=== PATIENT | female | born 1930 | race Hispanic/Latino ===

== ENCOUNTER 2017-11-06 08:53 | Day surgery (SDC) | payer MEDICARE ==
[2017-11-06] MEDS ORDERED: WATER FOR IRRIG STERILE IR ONE (10:45)
[2017-11-06] MEDS ORDERED: NACL 0.9% 1000 ML 1,000 ML IV SCH (11:00)
[2017-11-06] MEDS ORDERED: DIPRIVAN 10 MG/ML IV ONE (11:45)
--- NOTE | 2017-11-06 12:13 | Short Stay Summary ---
Short Stay Documentation Date of service: 11/06/17 Narrative H&P: The patient presents for EGD with esophageal dilation for dysphagia. 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 - History Past Medical History: COPD, stroke, other (pacemaker, recent carotid endarterectomy) Past Surgical History: Other (CEA, colon surgery, breast surgery) Social history: no significant social history, lives with family, no smoking, no alcohol abuse - Allergies and Medications Current Medications: Allergies bacitracin [From Neosporin ([id number])] Allergy (Verified 05/22/17 15:42) Rash codeine Allergy (Verified 05/22/17 15:42) N&V ibuprofen Allergy (Verified 05/22/17 15:42) Unknown neomycin [From Neosporin ([id number])] Allergy (Verified 05/22/17 15:42) Rash Penicillins Allergy (Verified 05/22/17 15:42) Anaphylaxis polymyxin B [From Neosporin ([id number])] Allergy (Verified 05/22/17 15:42) Rash IVP dye Allergy (Uncoded 05/22/17 15:42) Rash Home Medications Medication Instructions Recorded Confirmed Last Taken Type RX: Benzonatate [Tessalon Perles] 100 mg PO TID 05/22/17 11/05/17 Unknown History RX: Biotin 5,000 mcg PO DAILY 05/22/17 11/05/17 05/27/17 History RX: Calcium Carbonate/Vitamin D3 1 each PO DAILY 05/22/17 11/05/17 05/27/17 History [Oyster Shell Calcium-Vit D Tab] RX: Carvedilol [Coreg] 3.125 mg PO BID 05/22/17 11/06/17 11/05/17 17:00 History RX: Cetirizine HCl [Zyrtec] 10 mg PO DAILY 05/22/17 11/05/17 Unknown History RX: Guaifen/Dextromethorphan/PE 15 ml PO PRN PRN 05/22/17 11/05/17 05/25/17 History [Robafen Cf Liquid] RX: Melatonin 10 mg PO HS 05/22/17 11/06/17 11/05/17 21:00 History RX: Memantine HCl/Donepezil HCl 1 each PO DAILY 05/22/17 05/28/17 11/05/17 09: 00 History [Namzaric 28 mg-10 mg Capsule] RX: Multivitamin [Multiple 1 each PO DAILY 05/22/17 11/05/17 05/27/17 History Vitamins] RX: Niacin [Niacin ER] 500 mg PO DAILY 05/22/17 11/06/17 11/05/17 09:00 History RX: Nitroglycerin [Nitrostat] 0.4 mg SL Q5M PRN 05/22/17 11/05/17 Unknown History RX: Pantoprazole [Protonix TAB] 40 mg PO QDAY 05/22/17 11/05/17 05/28/17 History RX: Polyethylene Glycol 3350 527 gm PO DAILY 05/22/17 05/22/17 Unknown History RX: Pravastatin Sodium 20 mg PO QHS 05/22/17 11/06/17 11/05/17 21:00 History [Pravastatin] RX: Sertraline [Zoloft] 50 mg PO QDAY 05/22/17 11/06/17 11/05/17 09:00 History RX: amLODIPine [Norvasc] 2.5 mg PO DAILY 05/22/17 11/06/17 11/05/17 17:00 History RX: guaiFENesin [Mucinex] 600 mg PO Q12H 05/22/17 11/05/17 Unknown History RX: traMADol [Ultram 50 MG tab] 50 mg PO BID 05/22/17 11/06/17 11/05/17 17:00 History RX: Arformoterol Nebu [Brovana 15 mcg IH Q12HRT ml 06/05/17 11/05/17 Unknown Rx Nebu] RX: Aspirin [Aspirin BABY CHEW TAB] 81 mg PO QDAY tab.chew 06/05/17 11/06/17 09:00 Rx RX: Budesonide [Pulmicort Respules] 0.5 mg IH Q12HRT nebu 06/05/17 11/05/17 Unknown Rx RX: Nystas/Diphen/Xyl Visc/Mylanta 15 ml PO TID oral.liqd 06/05/17 11/05/17 Unknown Rx [Magic Mouthwash] Active Medications Sodium Chloride (Nacl 0.9% 1000 Ml) 1,000 mls @ 50 mls/hr IV DIRECT LIS Last Admin: 11/06/17 10:35 Dose: 50 mls/hr - Physical exam General appearance: no acute distress, well-nourished Integumentary: no rash, no growths, no abnormal pigmentation HEENT: Atraumatic, PERRLA, EOMI, Mucous membr. moist/pink Lungs: Clear to auscultation, Normal air movement Breasts: deferred Heart: Regular rate, Normal S1, Normal S2, No murmurs Gastrointestinal: normoactive bowel sounds, no tenderness, no distended, no masses, no guarding, no organomegaly Female Genitourinary: deferred Rectal Exam: deferred Extremities: no ischemia, pulses intact, pulses symmetrical, No edema, normal temperature, normal color, Full ROM Neurological: Normal gait, Normal speech, Strength at 5/5 X4 ext, Normal tone, Sensation intact, Cranial nerves 3-12 NL - Brief post op/procedure progress note Date of procedure: 11/06/17 Procedure: see dictated report Estimated blood loss: none Pathology: none Condition: stable - Disposition Condition at discharge: Good Disposition: DC-01 TO HOME OR SELFCARE - Discharge Diagnoses (1) Dysphagia Status: Chronic Short Stay Discharge Plan Activity: advance as tolerated, other Weight Bearing Status: Weight Bear as Tolerated Diet: advance as tolerated Follow up with: CAIT RIBEIRO MD [Primary Care Provider] - 7 Days
--- NOTE | 2017-11-06 12:17 | Operative Report ---
Operative Report Operative Report: Date of procedure: 11/06/2017 Procedure: Esophagogastroduodenoscopy with Tyler dilation of the esophagus-38 Kazakh, 42 Kazakh and 46 Kazakh sequentially. Preprocedure diagnosis: Dysphagia to solids. History of radiation to the neck. 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 Endoscopist: Dr. Kiran Anesthesia: Monitored anesthesia care per anesthesia department Medications: Propofol per anesthesia Estimated blood loss: 0 After careful discussion of the nature and purpose of the procedure as well as details the technique risks benefits and alternatives consent was obtained. The patient was placed in the left lateral decubitus position and medicated per anesthesia. The tip of the [employer] EQ 570 video scope was passed per orum under direct vision into the esophagus and advanced into the stomach and descending duodenum. The descending duodenum the duodenal bulb and pylorus were symmetrical and normal. The scope was withdrawn into the stomach and the stomach then gently insufflated with air. The antrum was normal. The stomach was further insufflated and the scope was then retroflexed and partially withdrawn. The cardia, fundus, and body of the stomach were within normal limits and easily distensible.The scope was then withdrawn in the forward position. The esophagogastric junction was at 36 cm. The distal and mid esophageal body were normal. There was the impression of mild stricturing at the cricopharyngeal inlet of the esophagus. Dilation was performed in light of symptoms and prior history of radiation therapy. A Tyler 38 Kazakh dilator was passed with mild resistance. This was followed by passage of 42 and 46 Kazakh Tyler dilators each with mild resistance. The procedure was was well tolerated and the patient was observed in recovery. 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 Status post dilation to 46 Kazakh Tyler. Plan: Repeat dilation as necessary. Electronically signed: Valente Kiran MD
--- NOTE | 2017-11-06 12:42 | Anesthesia Consultation ---
Anesthesia Consult and Med Hx Date of service: 11/06/17 - Airway Anesthetic Teeth Evaluation: Good ROM Head & Neck: Adequate Mental/Hyoid Distance: Adequate Mallampati Class: Class I Intubation Access Assessment: Good - Pulmonary Exam CTA: Yes - Cardiac Exam Cardiac Exam: RRR - Pre-Operative Health Status ASA Pre-Surgery Classification: ASA3 Proposed Anesthetic Plan: IV Sedation - Pulmonary Hx Smoking: Yes COPD: Yes - Cardiovascular System Hx Hypertension: Yes Hx Coronary Artery Disease: Yes Hx Heart Attack/AMI: Yes ("mild" 2 yrs ago) Hx Pacemaker: Yes - Central Nervous System CVA: Yes (04/2017) 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
--- NOTE | 2017-11-06 12:42 | Anesthesia Day of Surgery ---
Anesthesia Day of Surgery - Day of Surgery Patient Examined: Yes Patient H&P Reviewed: Yes Patient is NPO: Yes
--- NOTE | 2017-11-06 12:43 | Post Anesthesia Evaluation ---
- Post Anesthesia Evaluation Patient Participated: Yes Airway Patent: Yes Stable Respiratory Function: Yes Nausea/Vomiting: No Temp > 96.8F: Yes Pain Manageable: Yes Adequeate Hydration: Yes Anesthesia Complications: No
[2017-11-06 12:52] VITALS: BP 133/86
== END 2017-11-06 08:54 | disposition home or self-care (01) ==
LOC: GIO 08:53
PROVIDERS: ATTEND Internal Medicine Gastroenterology
DX: J39.2 Other diseases of pharynx (principal); J44.9 Chronic obstructive pulmonary disease, unspecified; I25.2 Old myocardial infarction; I10 Essential (primary) hypertension; Z86.73 Personal history of transient ischemic attack (TIA), and cerebral infarction without residual deficits; Z88.5 Allergy status to narcotic agent; Z88.1 Allergy status to other antibiotic agents; Z88.0 Allergy status to penicillin; Z91.048 Other nonmedicinal substance allergy status
CPT/HCPCS: 43248; J2704; J7030

== ENCOUNTER 2018-04-10 07:27 | Day surgery (SDC) | payer MEDICARE, MEDICAID ==
--- NOTE | 2018-04-10 08:26 | Anesthesia Day of Surgery ---
Anesthesia Day of Surgery - Day of Surgery Patient Examined: Yes Patient H&P Reviewed: Yes Patient is NPO: Yes Beta Blockers: Yes Cardiac Clearance: No Pulmonary Clearance: No
--- NOTE | 2018-04-10 08:27 | Anesthesia Consultation ---
Anesthesia Consult and Med Hx Date of service: 04/10/18 - Airway Anesthetic Teeth Evaluation: Good ROM Head & Neck: Adequate Mental/Hyoid Distance: Adequate Mallampati Class: Class III Intubation Access Assessment: Probably Good - Pulmonary Exam CTA: Yes - Cardiac Exam Cardiac Exam: No Murmur - Pre-Operative Health Status ASA Pre-Surgery Classification: ASA3 Proposed Anesthetic Plan: MAC - Pulmonary Hx Smoking: No SOB: Yes COPD: Yes - Cardiovascular System Hx Hypertension: Yes Hx Coronary Artery Disease: Yes Hx Heart Attack/AMI: Yes (2013) Hx Pacemaker: Yes (2014) - Central Nervous System CVA: Yes (SLIGHT LT SIDED WEAKNESS) 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
[2018-04-10] MEDS ORDERED: DIPRIVAN 10 MG/ML IV ONE (08:32)
[2018-04-10] MEDS ORDERED: NACL 0.9% 1000 ML 1,000 ML IV SCH (09:00)
--- NOTE | 2018-04-10 09:35 | Short Stay Summary ---
Short Stay Documentation Date of service: 04/10/18 - History H&P: obtained from office - Allergies and Medications Current Medications: Allergies bacitracin [From Neosporin ([id number])] Allergy (Verified 05/22/17 15:42) Rash codeine Allergy (Verified 05/22/17 15:42) N&V ibuprofen Allergy (Verified 05/22/17 15:42) Unknown neomycin [From Neosporin ([id number]-gbx-[id number])] Allergy (Verified 05/22/17 15:42) Rash Penicillins Allergy (Verified 05/22/17 15:42) Anaphylaxis polymyxin B [From Neosporin ([id number])] Allergy (Verified 05/22/17 15:42) Rash IVP dye Allergy (Uncoded 05/22/17 15:42) Rash Home Medications Medication Instructions Recorded Confirmed Last Taken Type RX: Benzonatate [Tessalon Perles] 100 mg PO TID 05/22/17 11/05/17 04/09/18 History RX: Biotin 5,000 mcg PO DAILY 05/22/17 11/05/17 04/09/18 History RX: Calcium Carbonate/Vitamin D3 1 each PO DAILY 05/22/17 11/05/17 04/09/18 History [Oyster Shell Calcium-Vit D Tab] RX: Carvedilol [Coreg] 3.125 mg PO BID 05/22/17 11/06/17 04/09/18 History RX: Cetirizine HCl [Zyrtec] 10 mg PO DAILY 05/22/17 11/05/17 04/09/18 History RX: Guaifen/Dextromethorphan/PE 15 ml PO PRN PRN 05/22/17 11/05/17 04/09/18 History [Robafen Cf Liquid] RX: Melatonin 10 mg PO HS 05/22/17 11/06/17 04/09/18 History RX: Memantine HCl/Donepezil HCl 1 each PO DAILY 05/22/17 05/28/17 04/09/18 History [Namzaric 28 mg-10 mg Capsule] RX: Multivitamin [Multiple 1 each PO DAILY 05/22/17 11/05/17 04/09/18 History Vitamins] RX: Niacin [Niacin ER] 500 mg PO DAILY 05/22/17 11/06/17 04/09/18 History RX: Nitroglycerin [Nitrostat] 0.4 mg SL Q5M PRN 05/22/17 11/05/17 04/08/18 History RX: Pantoprazole [Protonix TAB] 40 mg PO QDAY 05/22/17 11/05/17 04/09/18 History 40 RX: Polyethylene Glycol 3350 527 gm PO DAILY 05/22/17 05/22/17 Unknown History RX: Pravastatin Sodium 20 mg PO QHS 05/22/17 11/06/17 04/09/18 History [Pravastatin] 20 RX: Sertraline [Zoloft] 50 mg PO QDAY 05/22/17 11/06/17 04/09/18 History 50 RX: amLODIPine [Norvasc] 2.5 mg PO DAILY 05/22/17 11/06/17 04/09/18 History 5 RX: guaiFENesin [Mucinex] 600 mg PO Q12H 05/22/17 11/05/17 04/09/18 History 600 MG RX: traMADol [Ultram 50 MG tab] 50 mg PO BID 05/22/17 11/06/17 04/09/18 History 50 RX: Arformoterol Nebu [Brovana 15 mcg IH Q12HRT ml 06/05/17 11/05/17 04/09/18 Rx Nebu] RX: Aspirin [Aspirin BABY CHEW TAB] 81 mg PO QDAY tab.chew 06/05/17 11/06/17 Rx RX: Budesonide [Pulmicort Respules] 0.5 mg IH Q12HRT nebu 06/05/17 11/05/1706/16 Rx RX: Nystas/Diphen/Xyl Visc/Mylanta 15 ml PO TID oral.liqd 06/05/17 11/05/1706/16 Rx [Magic Mouthwash] Active Medications Sodium Chloride (Nacl 0.9% 1000 Ml) 1,000 mls @ 50 mls/hr IV DIRECT LIS - Brief post op/procedure progress note Date of procedure: 04/10/18 Findings: see dictated report Estimated blood loss: none Pathology: none Condition: stable - Disposition Condition at discharge: Good Disposition: DC-01 TO HOME OR SELFCARE - Discharge Diagnoses (1) Dysphagia Status: Chronic Short Stay Discharge Plan Activity: other (no driving for 24 hours, soft diet for 24 hours.) Weight Bearing Status: Weight Bear as Tolerated Diet: advance as tolerated Follow up with: CAIT RIBEIRO MD [Primary Care Provider] - 7 Days
--- NOTE | 2018-04-10 09:39 | Operative Report ---
Operative Report Operative Report: Date of procedure: 04/10/2018 Procedure: Esophagogastroduodenoscopy with Tyler dilation-42, 46 and 50 Danish. Preprocedure diagnosis: Dysphagia to solid foods with a history of a cervical esophageal stricture secondary to radiation therapy Post procedure diagnosis: Mild cervical esophageal stricture. Endoscopist: Dr. Kiran Anesthesia: Monitored anesthesia care per anesthesia department Medications: Propofol per anesthesia Estimated blood loss: 0 After careful discussion of the nature and purpose of the procedure as well as details the technique risks benefits and alternatives consent was obtained. The patient was placed in the left lateral decubitus position and medicated per anesthesia. The tip of the [employer] EQ 570 video scope was passed per orum under direct vision into the esophagus and advanced into the stomach and descending duodenum. The descending duodenum the duodenal bulb and pylorus were symmetrical and normal. The scope was withdrawn into the stomach and the stomach then gently insufflated with air. The antrum was normal. The stomach was further insufflated and the scope was then retroflexed and partially withdrawn. The cardia, fundus, and body of the stomach were within normal limits and easily distensible.The scope was then withdrawn in the forward position. The esophagogastric junction was at 38 cm. The esophageal body was normal throughout although little motility was observed. There was the impression of mild narrowing in the cervical esophageal region without a tight stricture or resistance to passage of the scope. Dilation was performed with 42 and 40 Danish dilators with minimal resistance followed by passing a Tyler 50 Danish dilator with mild resistance. The procedure was was well tolerated and the patient was observed in recovery. 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 Status post dilation to 50 Danish Tyler. Plan: Office follow-up in 6 months. Redilate when necessary. Electronically signed: Valente Kiran MD
[2018-04-10 09:55] VITALS: BP 152/67
== END 2018-04-10 07:28 | disposition home or self-care (01) ==
LOC: GIO 07:27
PROVIDERS: ATTEND Internal Medicine Gastroenterology
DX: K22.2 Esophageal obstruction (principal); R13.10 Dysphagia, unspecified; I10 Essential (primary) hypertension; I25.10 Atherosclerotic heart disease of native coronary artery without angina pectoris; I25.2 Old myocardial infarction; G20 Parkinson's disease; J44.9 Chronic obstructive pulmonary disease, unspecified; E78.00 Pure hypercholesterolemia, unspecified; K21.9 Gastro-esophageal reflux disease without esophagitis; M19.90 Unspecified osteoarthritis, unspecified site; F41.9 Anxiety disorder, unspecified; F32.9 Major depressive disorder, single episode, unspecified; Z86.73 Personal history of transient ischemic attack (TIA), and cerebral infarction without residual deficits; Z79.899 Other long term (current) drug therapy; Z88.8 Allergy status to other drugs, medicaments and biological substances; Z88.5 Allergy status to narcotic agent; Z79.82 Long term (current) use of aspirin; Z79.01 Long term (current) use of anticoagulants; Z95.0 Presence of cardiac pacemaker; Z98.41 Cataract extraction status, right eye; Z98.42 Cataract extraction status, left eye; Z98.890 Other specified postprocedural states; Z85.05 Personal history of malignant neoplasm of liver; Z80.8 Family history of malignant neoplasm of other organs or systems
CPT/HCPCS: 43248; J2704; J7030